=== PATIENT | female | born 1975 | race Caucasian/White ===

== ENCOUNTER 2016-11-16 06:20 | Emergency (ER) | payer BC, MEDICAID ==
[~2016-11-16] VITALS: Ht 154.9 cm; Wt 71.0 kg
[~2016-11-16 06:20] MED LIST: FOL8 PO; PREN-39 PO
[2016-11-16 06:36] VITALS: Ht 154.9 cm; Wt 71.0 kg
[2016-11-16] MEDS ORDERED: ACETAMINOPHEN 500 MG TAB PO STA (07:04)
[2016-11-16 07:36] LABS: BASOPHIL # 0.1 10^3/ul (0.0-0.1); BASOPHILS % 0.6 % (0.0-2.0); EOSINOPHILS # 0.1 10^3/ul (0.0-0.5); EOSINOPHILS % 1.3 % (0.0-7.0); HEMATOCRIT 40.3 % (37.0-47.0); HEMOGLOBIN 13.1 g/dl (12.0-16.0); LYMPHOCYTES % 35.9 % (15.0-51.0); MEAN CORPUSCULAR HEMOGLOBIN 30.5 pg (29.0-33.0); MEAN CORPUSCULAR HGB CONC 32.5 g/dl (32.0-37.0); MEAN CORPUSCULAR VOLUME 93.9 fl (82.0-101.0); MEAN PLATELET VOLUME 10.7 fl (7.4-10.4); MONOCYTE # 0.6 10^3/ul (0.3-0.9); MONOCYTES % 7.5 % (0.0-11.0); NEUTROPHILS % 54.3 % (39.0-77.0); PLATELET COUNT 231 10^3/UL (140-415); RED BLOOD COUNT 4.29 10^6/ul (4.20-5.40); RED CELL DISTRIBUTION WIDTH 13.8 % (11.5-14.5); WHITE BLOOD COUNT 8.3 10^3/ul (4.8-10.8)
--- NOTE | 2016-11-16 07:37 | ERD ---
ER Documentation Chief Complaint Date/Time DATE: 11/16/16 TIME: 07:36 Chief Complaint "woke up with bright red bleeding, no pain" 2nd HPI This is a 41-year-old female who presents the emergency department today complaining of vaginal bleeding. Patient states that 2 weeks ago she had a little vaginal bleeding every day but this morning it was heavier and more bright red. States she is approximate 6 weeks . States that she went to her primary care doctor yesterday it for yet filled out barrio was told to come here to the emergency room for any worsening of symptoms. States she used to have some dysuria but denies any currently. She does not take any medication for the crampy abdominal pain that she has. Denies any fevers or chills or nausea or vomiting. ROS All systems reviewed and are negative except as per history of present illness. Medications Home Meds Active Scripts Acetaminophen* (Tylophen*) 500 Mg Capsule, 1 CAP PO Q6H Y for PAIN AND OR ELEVATED TEMP, #30 CAP Prov:ALEX ALAN PA-C 11/16/16 Cephalexin* (Keflex*) 500 Mg Capsule, 500 MG PO QID for 7 Days, CAP Prov:ALEX ALAN PA-C 11/16/16 Reported Medications Folic Acid* (Folic Acid*) 0.8 Mg Tablet, 0.8 MG PO DAILY, TAB 06/13/15 Vits W-Ca,Fe,Fa(<1MG) ( Vitamins) 1 Tab Tablet, 1 TAB PO DAILY , TAB 06/13/15 Allergies Allergies: Coded Allergies: No Known Drug Allergies (Verified Allergy, Unknown, 06/14/15) PMhx/Soc Medical and Surgical Hx: pt denies Medical Hx, pt denies Surgical Hx Hx Alcohol Use: No Hx Substance Use: No Hx Tobacco Use: No Physical Exam Vitals Vital Signs Date Time Temp Pulse Resp B/P Pulse Ox O2 Delivery O2 Flow Rate FiO2 11/16/16 06:36 97.8 66 18 121/77 99 Physical Exam Const: No acute distress Head: Atraumatic Eyes: Normal Conjunctiva ENT: Normal External Ears, Nose and Mouth. Neck: Full range of motion..~ No meningismus. Resp: Clear to auscultation bilaterally Cardio: Regular rate and rhythm, no murmurs Abd: Soft, mild pelvic tenderness, non distended. Normal bowel sounds. No tenderness [place] Skin: No petechiae or rashes Back: No midline or flank tenderness Ext: No cyanosis, or edema Neur: Awake and alert Psych: Normal Mood and Affect Result Diagram: 11/16/1614 Results 24 hrs Laboratory Tests Test 11/16/16 07:14 White Blood Count 8.310^3/ul Red Blood Count 4.2910^6/ul Hemoglobin 13.1g/dl Hematocrit 40.3% Mean Corpuscular Volume 93.9fl Mean Corpuscular Hemoglobin 30.5pg Mean Corpuscular Hemoglobin Concent 32.5g/dl Red Cell Distribution Width 13.8% Platelet Count 61600^3/UL Mean Platelet Volume 10.7fl Neutrophils % 54.3% Lymphocytes % 35.9% Monocytes % 7.5% Eosinophils % 1.3% Basophils % 0.6% Nucleated Red Blood Cells % 0.0/100WBC Neutrophils # (Manual) 510^3/ul Lymphocytes # 3.010^3/ul Monocytes # 0.610^3/ul Eosinophils # 0.110^3/ul Basophils # 0.110^3/ul Nucleated Red Blood Cells # 0.010^3/ul Urine Color YELLOW Urine Clarity SLIGHTLY CLOUDY Urine pH 6.0 Urine Specific [place] 1.024 Urine Ketones NEGATIVEmg/dL Urine Nitrite NEGATIVEmg/dL Urine Bilirubin NEGATIVEmg/dL Urine Urobilinogen NEGATIVEmg/dL Urine Leukocyte Esterase 2+Davion/ul Urine Microscopic RBC 60/HPF Urine Microscopic WBC 44/HPF Urine Squamous Epithelial Cells FEW/HPF Urine Mucus FEW/HPF Urine Hemoglobin 3+mg/dL Urine Glucose NEGATIVEmg/dL Urine Total Protein 1+mg/dl Beta HCG, Quantitative 05405.0mIU/ml Current Medications Medications (Trade) Dose Ordered Sig/Don Route PRN Reason Start Time Stop Time Status Last Admin Dose Admin Acetaminophen (Tylenol Tab) 500 mg ONCE STAT PO 11/16/16 07:04 11/16/16 07:06 DC 11/16/16 07:24 DIAGNOSTIC IMAGING REPORT Patient: ELANA GUADARRAMA : 1975 Age: 41 Sex: F MR #: [id number] DOS: 11/16/16 0704 Ordering MD: ALEX ALAN PA-C Location: [facility] Room/Bed: PROCEDURE: US OB. CLINICAL INDICATION: Vaginal Bleed () LMP 09/28/2016 TECHNIQUE: Transabdominal and transvaginal views of the pelvis are available for review. COMPARISON: No prior studies are available for comparison. FINDINGS: The uterus measures 6.4 x 5.7 x 6.2 cm. There is an irregular shaped intrauterine gestational sac measuring 1.7 cm. pole and yolk sac are identified. [place]-rump length: 8.6 mm heart rate: Absent Ultrasound estimated gestational age: 6 weeks, 5 days. The estimated due date is 07/07/2017. The right ovary measures 1.6 x 1.1 cm with a 1.0 x 0.8 cm paraovarian cyst. Left ovary measures 2.2 x 1.5 x 2.2 cm. Probable 2 cm complex cyst or corpus luteum. Doppler flow is demonstrated in both ovaries. No ovarian or adnexal mass lesion is seen. There is no free fluid. IMPRESSION: 1. Irregular shaped intrauterine gestational sac. pole without evidence of cardiac motion suggesting early demise. 2. Probable 2 cm left corpus luteum. Physician Leo Date Time Electronically viewed and signed by Physician Leo on 11/16/2016 09: 58 CS/ CC: ALEX ALAN PA-C Procedures/MDM This is a 41-year-old female who presents to the emergency department today complaining of vaginal bleeding. Patient states she is approximately 6 weeks . Given this I did obtain a complete OB workup. Laboratory work shows no elevated white blood cell count. She is not anemic. Platelets are within normal limits. UA 2+ leukocyte esterase negative nitrites Beta quant hCG 31,000 Rh status O+ Ultrasound shows an irregular shaped intrauterine gestational sac. pole is without evidence of cardiac motion suggesting early demise. Probable 2 cm left corpus luteum cyst. There is no free fluid. There is no adnexal or ovarian masses. Doppler flow is demonstrated to both ovaries. Patient symptoms at this time is consistent with vaginal bleeding in early and likely failed . No evidence of placenta previa or subchorionic hemorrhage. Patient is afebrile and otherwise well-appearing. I have low suspicion for ectopic , tubo ovarian abscess, ovarian torsion. Patient also has a urinary tract infection. She will be given a prescription for Keflex. Patient was given Tylenol here in the emergency department. I will also give her prescription for home. I placed a call to the laborist roll on man, Dr. Horowitz, given the patient's ultrasound and beta quant. She feels the patient is stable for discharge and outpatient management. I have explained to the patient that she is going to continue to have vaginal bleeding and likely abdominal cramping. I have explained to the patient that this is not a viable at this time. Patient may follow-up with her primary care doctor or [facility]. At this time the patient is stable for discharge and outpatient management. Patient should follow up with their PCP in the next 1-2 days. They may return to the emergency department sooner for any persistent or worsening of symptoms. Patient understood and agreed with the plan. Departure Diagnosis: Primary Impression: Vaginal bleeding in patient at less than 20 weeks gestation Additional Impression: UTI (urinary tract infection) Urinary tract infection type: site unspecified Hematuria presence: with hematuria Qualified Code: N39.0 - Urinary tract infection with hematuria, site unspecified Condition: ALEX Miramontes PA-C Nov 16, 2016 07:37
[2016-11-16 07:42] LABS: ADD UMIC YES; UR ASCORBIC ACID 40 mg/dL (NEGATIVE); UR BILIRUBIN (Dip) NEGATIVE (NEGATIVE); UR BLOOD (Dip) 3+ mg/dL (NEGATIVE); UR CLARITY SLIGHTLY CLOUDY (CLEAR); UR COLOR YELLOW (YELLOW); UR GLUCOSE (Dip) NEGATIVE (NEGATIVE); UR KETONES (Dip) NEGATIVE (NEGATIVE); UR LEUKOCYTE ESTERASE (Dip) 2+ Leu/ul (NEGATIVE); UR MUCUS FEW /HPF (NONE SEEN); UR NITRITE (Dip) NEGATIVE (NEGATIVE); UR RBC 60 /HPF (0-5); UR SPECIFIC GRAVITY (Dip) 1.024 (1.003-1.030); UR SQUAMOUS EPITHELIAL CELL FEW /HPF (FEW); UR TOTAL PROTEIN (Dip) 1+ mg/dl (NEGATIVE); UR UROBILINOGEN (Dip) NEGATIVE (NEGATIVE)
--- NOTE | 2016-11-16 09:58 | RADRPT ---
PROCEDURE: US OB. CLINICAL INDICATION: Vaginal Bleed () LMP 09/28/2016 TECHNIQUE: Transabdominal and transvaginal views of the pelvis are available for review. COMPARISON: No prior studies are available for comparison. FINDINGS: The uterus measures 6.4 x 5.7 x 6.2 cm. There is an irregular shaped intrauterine gestational sac m easuring 1.7 cm. pole and yolk sac are identified. [place]-rump length:8.6 mm heart rate:Absent Ultrasound estimated gestational age:6 weeks, 5 days. The estimated due date is 07/07/2017. The right ovary measures 1.6 x 1.1 cm with a 1.0 x 0.8 cm paraovarian cyst. Left ovary measures 2.2 x 1.5 x 2.2 cm. Probable 2 cm complex cyst or corpus luteum. Doppler flow is demonstrated in both ov cathi. No ovarian or adnexal mass lesion is seen. There is no free fluid. IMPRESSION: 1. Irregular shaped intrauterine gestational sac. pole without evidence of cardiac motion sug gesting early demise. 2. Probable 2 cm left corpus luteum. Physician Leo Date Time Electronically viewed and signed by Physician Leo on 11/16/2016 09:58 CS/
[2016-11-16] MEDS ORDERED: CEPH-443 PO (10:23)
[2016-11-16] MEDS ORDERED: ACET500C5 PO (10:24)
[2016-11-16 10:53] VITALS: BP 118/72; PULSE 65; RESP 18; TEMP 97.8
== END 2016-11-16 10:54 | disposition home or self-care (01) ==
LOC: FTE 06:20
DX: O20.9 Hemorrhage in early pregnancy, unspecified (principal); O23.41 Unspecified infection of urinary tract in pregnancy, first trimester; Z3A.01 Less than 8 weeks gestation of pregnancy
CPT/HCPCS: 36415; 76801; 76817; 81001; 84702; 85025; 86900; 86901; Z7502; Z7610